=== PATIENT | male | born 1990 | race Caucasian/White ===

== ENCOUNTER 2017-04-18 14:32 | Emergency (ER) | payer OTHER ==
[2017-04-18 14:41] VITALS: O2SAT 99
--- NOTE | 2017-04-18 15:57 | EDPHY ---
H & P Stated Complaint: TRIPPED/FELL LAC TO L FACE/EYEBROW Time Seen by Provider: 04/18/17 15:53 HPI/ROS: HPI: This is a 26-year-old male who presents with Chief Complaint: Left eyebrow abrasion Location: Left eyebrow Quality: Abrasion Duration: 2-3 hours prior to arrival Signs and Symptoms: + minimal bleeding, no radiation, no numbness, no weakness , no tingling, no incontinence, no decreased range of motion, no swelling, no pain Timing: Acute Severity: Mild Context: Patient reports that he is walking on the street and accidentally tripped on the uneven pavement. He fell forward hitting his left eyebrow on the cement and sustaining an abrasion. He noted some bleeding immediately this since stopped in fairly quickly within a few minutes. He reports his tetanus is up-to-date. Denies LOC/headache/neck pain/nausea. He reports that he did not try to stop his fall by putting his hands out and does not have any pain anywhere else on his body. Modifying Factors: None Comment: ROS: see HPI Constitutional: No fever, no chills, no weight loss Eyes: No blurred vision Respiratory: No shortness of breath, no cough Cardiovascular: No chest pain Gastrointestinal: No nausea, no vomiting no diarrhea Genitourinary: No dysuria Extremities: No myalgias Neurologic: No weakness, no numbness Skin: No rashes Hematologic: No bruising, no bleeding MEDICAL/SURGICAL/SOCIAL HISTORY: Medical history: Schizoaffective disorder, scoliosis. Surgical history: Denies Social history: Employed CONSTITUTIONAL: Pleasant well-appearing young adult white male, awake and alert , no obvious distress HEENT: 1.5 cm abrasion noted to left eyebrow; no deep laceration to repair. normocephalic. NECK: supple, no midline tenderness, flexion 45 degrees, extension 45 degrees, right and left lateral flexion 45 degrees. No meningismus. Cardiovascular: Normal S1/S2, regular rate, regular rhythm, without murmur rub or gallop. PULMONARY/CHEST: Symmetrical and nontender. no crepitus. Clear to auscultation bilaterally. Good air movement. No accessory muscle usage. ABDOMEN: Soft, nondistended, nontender, no ecchymosis. PELVIC: no pain with rocking; bilateral hips flexion 125 degrees, extension 30 degrees, with no pain internal rotation and no pain external rotation. BACK: No midline tenderness, no paraspinous spasm, deep tendon reflexes 2/2, no pain with straight leg raise EXTREMITIES: 2/2 pulses, no deformities, no clubbing, no cyanosis or edema. NEUROLOGICAL: no focal neuro deficits. GCS 15. Light touch sensation intact. SKIN: Warm and dry, no erythema. no rash. Good capillary refill. Source: Patient Exam Limitations: No limitations - Personal History Current Tetanus/Diphtheria Vaccine: Unsure - Medical/Surgical History Hx Asthma: No Hx Chronic Respiratory Disease: No Hx Diabetes: No Hx Cardiac Disease: No Hx Renal Disease: No Hx Cirrhosis: No Hx Alcoholism: No Hx HIV/AIDS: No Hx Splenectomy or Spleen Trauma: No Other PMH: Schizoaffective disorder, scolosis. - Social History Smoking Status: Current every day smoker Constitutional: Initial Vital Signs Temperature (C) 36.4 C 04/18/17 14:38 Heart Rate 82 04/18/17 14:38 Respiratory Rate 20 04/18/17 14:38 Blood Pressure 106/75 04/18/17 14:38 O2 Sat (%) 99 04/18/17 14:38 O2 Delivery Mode Room Air Allergies/Adverse Reactions: cefaclor [From [facility]] Allergy (Severe, Verified 04/18/17 14:35) Hives Home Medications: Medication Instructions Recorded ANTABUSE 04/18/17 Abilify 04/18/17 Ativan 04/18/17 Atropine Sulfate 04/18/17 Clozapine 04/18/17 Cogentin 04/18/17 Colace 04/18/17 Ensure Active Clear 04/18/17 Fish Oil 1,000 mg Capsule 04/18/17 LaMICtal 04/18/17 Lexapro 04/18/17 Miralax 17 gm (*) 04/18/17 Propranolol HCl 04/18/17 Medical Decision Making ED Course/Re-evaluation: Vital signs reviewed upon arrival in stable. No LOC. No neurological symptoms. Offered patient head CT scan and CT maxillofacial scan and patient politely declined which I deem is reasonable. Wound care provided: Cleaned with mild soap and water and Steri-Strips placed. Tetanus up-to-date. Written and verbal wound care instructions provided as well as concussion precautions. No signs of neurovascular compromise/tenting of skin/compartment syndrome/ extremities and joints examined above and below area of concern and are neurovascularly intact. Differential Diagnosis: Head injury including but not limited to concussion, skull fracture, intraparenchymal contusion, subarachnoid, subdural and epidural hematoma. Departure - Departure Disposition: Home, Routine, Self-Care Clinical Impression: Abrasion of left eyebrow Qualifiers: Encounter type: initial encounter Qualified Code(s): S00.212A - Abrasion of left eyelid and periocular area, initial encounter Condition: Good Instructions: Abrasion (ED), Steristrips (ED) Additional Instructions: Please keep the abrasion dry times 48 hours. After 48 hours; wash the site daily with mild soap and water; then pat dry. Allow the Steri-Strips to fall off on their own. Take ibuprofen 600 mg every 8 hours with food as needed for pain and headache. Monitor for signs and symptoms of concussion. Referrals: MD [facility] [Other] - As per Instructions
[2017-04-18 16:10] VITALS: BP 110/79; PULSE 72; RESP 18; TEMP 98.6
== END 2017-04-18 16:10 | disposition home or self-care (01) ==
DX: S00.212A Abrasion of left eyelid and periocular area, initial encounter (principal); F17.200 Nicotine dependence, unspecified, uncomplicated; W01.198A Fall on same level from slipping, tripping and stumbling with subsequent striking against other object, initial encounter; Y92.410 Unspecified street and highway as the place of occurrence of the external cause; Y99.8 Other external cause status; Y93.01 Activity, walking, marching and hiking